=== PATIENT | female | born 1950 | race Caucasian/White ===

== ENCOUNTER 2019-02-28 08:57 | Inpatient (IN) | payer OTHER, MEDICAID ==
[2019-02-28] VITALS (34 sets, daily range): BP systolic 82–114; BP diastolic 47–61; PULSE 89–110; RESP 13–31; Ht 160 cm; Wt 69.4 kg
[~2019-02-28] VITALS: Ht 160 cm; Wt 69.4 kg
[~2019-02-28 08:57] MED LIST: ACET-2343 GTB; ALBU2.5V3 NEB; AMIN30LI GTB; ASCO500C7 GTB; BISA10SU55 RC; CHLO473M4 MM; DEXA4TAB GTB; DOCU-144 GTB; DULO30CA48 GTB; FAMO20TA18 GTB; GABA300C16 GTB; HYDR2TAB36 GTB; INSU500I SQ; LORA-441 GTB; MAGN400O19 GTB; MULTI GTB; NA P133E39 RC; NITR0.4T32 SL; UDFER GTB; ZINC220C5 GTB
[2019-02-28] MEDS ORDERED: ACETAMINOPHEN 650MG/20.3ML CUP NGT STA (09:03)
[2019-02-28] MEDS ORDERED: CEFEPIME 2GM/50 ML (PMX) 50 ML IVPB STA (09:03)
[2019-02-28] MEDS ORDERED: SODIUM CHLORIDE 0.9% 1L BAG IV* STA (09:03)
[2019-02-28] MEDS ORDERED: VANCOMYCIN 1 GM (PMX) 250 ML IVPB ONE (09:30)
[2019-02-28] MEDS ORDERED: NA BICARBONATE 8.4% 50 ML SYG IV STA (09:39)
[2019-02-28] MEDS ORDERED: INSULIN REGULAR, HUMAN 100 UNIT/1 ML 3ML VIAL IVP STA (09:39)
[2019-02-28] MEDS ORDERED: CALCIUM GLUCONATE 10% 1 GM in DEXTROSE 5% 100 ML IVPB ONE (10:00)
[2019-02-28] MEDS ORDERED: DEXTROSE 50% 50 ML SYRINGE IV PRN ×5 (10:00→16:30)
[2019-02-28] MEDS ORDERED: ONDANSETRON 4 MG INJ IV PRN (11:00)
[2019-02-28] MEDS: PANTOPRAZOLE 40 MG INJ IV SCH ×2 (11:00→14:24)
[2019-02-28] MEDS: ACCU-CHEK XX SCH ×5 (11:00→15:00)
[2019-02-28] MEDS ORDERED: NORepinephrine 8MG/250 ML (PMX 250 ML ONE (11:46)
[2019-02-28] MEDS ORDERED: NORepinephrine 8MG/250 ML (PMX 250 ML IV STA (11:46)
[2019-02-28] MEDS ORDERED: SOD CHLORIDE 0.9% 1,000 ML IV STA (11:46)
[2019-02-28] MEDS ORDERED: INSULIN HUMAN REGULAR 100 UNIT in SOD CHLORIDE 0.9% 99 ML IV SCH (12:00)
[2019-02-28] MEDS: SOD CHLORIDE 0.9% 1,000 ML IV SCH ×2 (13:54→23:29)
[2019-02-28] MEDS: POLYETHYLENE GLYCOL 17 GM PACKET PEG SCH (14:26)
[2019-02-28] MEDS ORDERED: VANCOMYCIN IV PER PHARMACY XX SCH (16:00)
[2019-02-28] MEDS ORDERED: GLUCAGON 1 MG INJ IM PRN (16:30)
[2019-02-28] MEDS ORDERED: GLUCOSE GEL 15 GRAM TUBE PO PRN ×2 (16:30)
[2019-02-28] MEDS ORDERED: GLUCOSE GEL 15 GRAM TUBE BUCCAL PRN (16:30)
[2019-02-28] MEDS: MEROPENEM 1 GM/50ML(PMX) 50 ML IVPB SCH ×2 (16:32→22:31)
[2019-02-28] MEDS: FLUCONAZOLE 400 MG/NS (PMX) 200 ML IVPB SCH (17:32)
[2019-02-28] MEDS: INSULIN ASPART [NOVOLOG] 3 ML PEN SC SCH ×2 (17:35→20:40)
[2019-02-28] MEDS: DOCUSATE SODIUM 10 MG/ML (10ML CUP) GTB SCH (20:25)
[2019-02-28] MEDS: FERROUS SULFATE 60 MG/ML 5ML CUP GTB SCH (20:25)
[2019-02-28] MEDS: CHLORHEXIDINE GLUCONATE 15 ML UD CUP MM SCH (20:25)
[2019-02-28] MEDS ORDERED: NA PHOSPHATE/BIPHOS 133 ML ENEMA PR PRN (20:30)
[2019-02-28] MEDS: VANCOMYCIN 750 MG (PMX) 250 ML IVPB SCH (20:38)
[2019-02-28] MEDS ORDERED: HEPARIN 5,000 UNIT/1 ML VIAL SC SCH (21:00)
[2019-02-28] MEDS ORDERED: NA PHOSPHATE/BIPHOS 133 ML ENEMA PR ONE (21:00)
[2019-03-01] VITALS (63 sets, daily range): BP systolic 84–124; BP diastolic 33–66; PULSE 85–100; RESP 12–25
[2019-03-01] MEDS: INSULIN ASPART [NOVOLOG] 3 ML PEN SC SCH ×6 (00:33→21:00)
[2019-03-01] MEDS: ACCU-CHEK XX SCH (02:00)
[2019-03-01] MEDS: SOD CHLORIDE 0.9% 1,000 ML IV SCH (03:30)
[2019-03-01] MEDS: MEROPENEM 1 GM/50ML(PMX) 50 ML IVPB SCH ×3 (05:39→22:02)
[2019-03-01] MEDS: LANSOPRAZOLE (SOLTAB) 30 MG TAB GTB SCH (05:39)
[2019-03-01] MEDS ORDERED: PANTOPRAZOLE (EC) 40 MG TAB PO SCH (06:00)
[2019-03-01] MEDS: MULTIVITAMINS THERAPEUTIC TAB GTB SCH (08:24)
[2019-03-01] MEDS: ASCORBIC ACID 500 MG TAB GTB SCH (08:24)
[2019-03-01] MEDS: FERROUS SULFATE 60 MG/ML 5ML CUP GTB SCH ×2 (08:24→21:00)
[2019-03-01] MEDS: CHLORHEXIDINE GLUCONATE 15 ML UD CUP MM SCH ×2 (08:24→21:00)
[2019-03-01] MEDS: VANCOMYCIN 750 MG (PMX) 250 ML IVPB SCH ×2 (08:25→22:02)
[2019-03-01] MEDS: POLYETHYLENE GLYCOL 17 GM PACKET PEG SCH (08:25)
[2019-03-01] MEDS: ZINC SULFATE 220 MG CAP GTB SCH (08:25)
[2019-03-01] MEDS: DOCUSATE SODIUM 10 MG/ML (10ML CUP) GTB SCH ×2 (08:27→21:00)
[2019-03-01] MEDS ORDERED: NON-FORMULARY/PATIENT OWN MED (Amino Acids/Protein Hydrolys (Pro-Stat Liquid) 30 ML) GTB SCH (09:00)
[2019-03-01] MEDS: DEXTROSE 5%-0.45% NACL 1,000 ML IV SCH ×2 (10:24→22:09)
[2019-03-01] MEDS ORDERED: MAGNESIUM CITRATE 300 ML BTL GTB ONE (10:30)
[2019-03-01] MEDS ORDERED: GENTAMICIN IV PER PHARMACY XX SCH (13:00)
[2019-03-01] MEDS ORDERED: IOHEXOL 300MG/ML 150 ML BTL ONE (14:42)
[2019-03-01] MEDS ORDERED: MINERAL OIL 133 ML ENEMA PR ONE (15:30)
[2019-03-01] MEDS ORDERED: GENTAMICIN IVPB SCH (16:00)
[2019-03-01] MEDS ORDERED: DEXTROSE 5% IVPB SCH (16:00)
[2019-03-01] MEDS: FLUCONAZOLE 400 MG/NS (PMX) 200 ML IVPB SCH (16:43)
[2019-03-02] VITALS (73 sets, daily range): BP systolic 79–158; BP diastolic 37–68; PULSE 77–106; RESP 12–32
[2019-03-02] MEDS: INSULIN ASPART [NOVOLOG] 3 ML PEN SC SCH ×6 (01:00→21:00)
[2019-03-02] MEDS: DEXTROSE 5%-0.45% NACL 1,000 ML IV SCH (01:00)
[2019-03-02] MEDS: ACCU-CHEK XX SCH (02:00)
[2019-03-02] MEDS: MEROPENEM 1 GM/50ML(PMX) 50 ML IVPB SCH ×3 (05:19→21:49)
[2019-03-02] MEDS: LANSOPRAZOLE (SOLTAB) 30 MG TAB GTB SCH (05:19)
[2019-03-02] MEDS ORDERED: POTASSIUM CHLORIDE (SR) 20 MEQ TAB PO ONE (05:54)
[2019-03-02] MEDS ORDERED: POTASSIUM CHLORIDE 50 ML ONE (05:57)
[2019-03-02] MEDS: POTASSIUM CHLORIDE 50 ML IVPB SCH ×2 (06:24→08:26)
[2019-03-02] MEDS ORDERED: SOD CHLORIDE 0.9% 250 ML IV* ONE (06:57)
[2019-03-02] MEDS: CHLORHEXIDINE GLUCONATE 15 ML UD CUP MM SCH ×2 (08:19→20:48)
[2019-03-02] MEDS: ASCORBIC ACID 500 MG TAB GTB SCH (08:20)
[2019-03-02] MEDS: FERROUS SULFATE 60 MG/ML 5ML CUP GTB SCH ×2 (08:20→20:48)
[2019-03-02] MEDS: MULTIVITAMINS THERAPEUTIC TAB GTB SCH (08:20)
[2019-03-02] MEDS: DOCUSATE SODIUM 10 MG/ML (10ML CUP) GTB SCH ×2 (08:20→20:38)
[2019-03-02] MEDS: POLYETHYLENE GLYCOL 17 GM PACKET PEG SCH (08:20)
[2019-03-02] MEDS: ZINC SULFATE 220 MG CAP GTB SCH (08:20)
[2019-03-02] MEDS: VANCOMYCIN 750 MG (PMX) 250 ML IVPB SCH (08:26)
[2019-03-02] MEDS: SOD CHLORIDE 0.9% 1,000 ML IV SCH (09:52)
[2019-03-02] MEDS ORDERED: MAGNESIUM SULFATE 2 GM/50 ML 50 ML IVPB ONE (13:30)
[2019-03-02] MEDS ORDERED: NORepinephrine 8MG/250 ML (PMX 250 ML IV SCH (16:00)
[2019-03-02] MEDS ORDERED: AMIKACIN IV PER PHARMACY XX SCH (16:00)
[2019-03-02] MEDS ORDERED: SOD CHLORIDE 0.9% IVPB SCH (18:00)
[2019-03-02] MEDS ORDERED: AMIKACIN IVPB SCH (18:00)
[2019-03-02] MEDS: ACETAMINOPHEN 325 MG TAB GTB PRN (20:49)
[2019-03-03] VITALS (50 sets, daily range): BP systolic 89–145; BP diastolic 43–63; PULSE 71–100; RESP 12–25
[2019-03-03] MEDS: INSULIN ASPART [NOVOLOG] 3 ML PEN SC SCH ×6 (01:00→20:22)
[2019-03-03] MEDS: ACCU-CHEK XX SCH (01:50)
[2019-03-03] MEDS ORDERED: LORAZEPAM 1 MG TAB ONE (03:01)
[2019-03-03] MEDS: LORAZEPAM 0.5 MG TAB GTB PRN (03:06)
[2019-03-03] MEDS: SOD CHLORIDE 0.9% 1,000 ML IV SCH (05:21)
[2019-03-03] MEDS: ACETAMINOPHEN 325 MG TAB GTB PRN (05:22)
[2019-03-03] MEDS: LANSOPRAZOLE (SOLTAB) 30 MG TAB GTB SCH (05:27)
[2019-03-03] MEDS: MEROPENEM 1 GM/50ML(PMX) 50 ML IVPB SCH ×3 (05:27→21:41)
[2019-03-03] MEDS ORDERED: MAGNESIUM SULFATE 2 GM/50 ML 50 ML IVPB ONE (07:00)
[2019-03-03] MEDS: POLYETHYLENE GLYCOL 17 GM PACKET PEG SCH (08:35)
[2019-03-03] MEDS: DOCUSATE SODIUM 10 MG/ML (10ML CUP) GTB SCH ×2 (09:00→21:00)
[2019-03-03] MEDS: NEUTRA-PHOS 250 MG PACKET GTB SCH ×2 (09:06→21:42)
[2019-03-03] MEDS: MULTIVITAMINS THERAPEUTIC TAB GTB SCH (09:06)
[2019-03-03] MEDS: CHLORHEXIDINE GLUCONATE 15 ML UD CUP MM SCH ×2 (09:06→21:42)
[2019-03-03] MEDS: ZINC SULFATE 220 MG CAP GTB SCH (09:06)
[2019-03-03] MEDS: ASCORBIC ACID 500 MG TAB GTB SCH (09:06)
[2019-03-03] MEDS: FERROUS SULFATE 60 MG/ML 5ML CUP GTB SCH ×2 (09:06→21:42)
[2019-03-03] MEDS: POTASSIUM CHLORIDE 100 ML IVPB SCH ×3 (11:33→15:30)
[2019-03-04] VITALS (17 sets, daily range): BP systolic 113–133; BP diastolic 55–63; PULSE 87–97; RESP 10–22
[2019-03-04] MEDS: INSULIN ASPART [NOVOLOG] 3 ML PEN SC SCH ×5 (00:55→21:00)
[2019-03-04] MEDS: ACCU-CHEK XX SCH (02:00)
[2019-03-04] MEDS: LORAZEPAM 0.5 MG TAB GTB PRN (02:28)
[2019-03-04] MEDS: MEROPENEM 1 GM/50ML(PMX) 50 ML IVPB SCH ×3 (06:49→21:02)
[2019-03-04] MEDS: LANSOPRAZOLE (SOLTAB) 30 MG TAB GTB SCH (06:49)
[2019-03-04] MEDS: NEUTRA-PHOS 250 MG PACKET GTB SCH ×2 (09:54→20:45)
[2019-03-04] MEDS: MULTIVITAMINS THERAPEUTIC TAB GTB SCH (09:54)
[2019-03-04] MEDS: POLYETHYLENE GLYCOL 17 GM PACKET PEG SCH (09:54)
[2019-03-04] MEDS: DOCUSATE SODIUM 10 MG/ML (10ML CUP) GTB SCH ×2 (09:55→20:43)
[2019-03-04] MEDS: CHLORHEXIDINE GLUCONATE 15 ML UD CUP MM SCH ×2 (09:55→20:52)
[2019-03-04] MEDS: FERROUS SULFATE 60 MG/ML 5ML CUP GTB SCH ×2 (09:55→20:45)
[2019-03-04] MEDS: ASCORBIC ACID 500 MG TAB GTB SCH (09:56)
[2019-03-04] MEDS: ZINC SULFATE 220 MG CAP GTB SCH (09:56)
[2019-03-04] MEDS ORDERED: POTASSIUM PHOSPHATE 20 MEQ in SOD CHLORIDE 0.9% 250 ML IVPB ONE (10:00)
[2019-03-04] MEDS ORDERED: SULFAMETHOXAZOLE IVPB SCH (16:00)
[2019-03-04] MEDS ORDERED: DEXTROSE IVPB SCH (16:00)
[2019-03-04] MEDS ORDERED: TRIMETHOPRIM IVPB SCH (16:00)
[2019-03-04] MEDS: DEXTROSE IVPB SCH (22:50)
[2019-03-04] MEDS: SULFAMETHOXAZOLE IVPB SCH (22:50)
[2019-03-04] MEDS: TRIMETHOPRIM IVPB SCH (22:50)
[2019-03-05] VITALS (18 sets, daily range): BP systolic 97–121; BP diastolic 51–58; PULSE 80–95; RESP 14–21
[2019-03-05] MEDS: INSULIN ASPART [NOVOLOG] 3 ML PEN SC SCH ×6 (01:30→21:00)
[2019-03-05] MEDS: ACCU-CHEK XX SCH (02:08)
[2019-03-05] MEDS: LORAZEPAM 0.5 MG TAB GTB PRN (03:08)
[2019-03-05] MEDS: MEROPENEM 1 GM/50ML(PMX) 50 ML IVPB SCH ×3 (05:16→22:05)
[2019-03-05] MEDS: LANSOPRAZOLE (SOLTAB) 30 MG TAB GTB SCH (05:16)
[2019-03-05] MEDS: DEXTROSE IVPB SCH (06:33)
[2019-03-05] MEDS: SULFAMETHOXAZOLE IVPB SCH (06:33)
[2019-03-05] MEDS: TRIMETHOPRIM IVPB SCH (06:33)
[2019-03-05] MEDS: MULTIVITAMINS THERAPEUTIC TAB GTB SCH (10:13)
[2019-03-05] MEDS: NEUTRA-PHOS 250 MG PACKET GTB SCH ×2 (10:13→21:00)
[2019-03-05] MEDS: ASCORBIC ACID 500 MG TAB GTB SCH (10:13)
[2019-03-05] MEDS: DOCUSATE SODIUM 10 MG/ML (10ML CUP) GTB SCH ×2 (10:14→21:00)
[2019-03-05] MEDS: POLYETHYLENE GLYCOL 17 GM PACKET PEG SCH (10:14)
[2019-03-05] MEDS: FERROUS SULFATE 60 MG/ML 5ML CUP GTB SCH ×2 (10:15→21:00)
[2019-03-05] MEDS: CHLORHEXIDINE GLUCONATE 15 ML UD CUP MM SCH ×2 (10:15→21:00)
[2019-03-05] MEDS: ZINC SULFATE 220 MG CAP GTB SCH (10:15)
[2019-03-05] MEDS ORDERED: POTASSIUM CHLORIDE (1.33 MEQ/ML PO SYG) GTB ONE (10:30)
[2019-03-05] MEDS ORDERED: POTASSIUM CHLORIDE 20 MEQ POWDER FOR ORAL SOLN GTB SCH (10:30)
[2019-03-05] MEDS: COLISTIMETHATE 150 MG in SOD CHLORIDE 0.9% 100 ML IVPB SCH ×2 (15:00→23:46)
[2019-03-06] VITALS (18 sets, daily range): BP systolic 97–111; BP diastolic 51–65; PULSE 89–100; RESP 14–23
[2019-03-06] MEDS: INSULIN ASPART [NOVOLOG] 3 ML PEN SC SCH ×6 (01:00→21:00)
[2019-03-06] MEDS: ACCU-CHEK XX SCH (02:00)
[2019-03-06] MEDS: MEROPENEM 1 GM/50ML(PMX) 50 ML IVPB SCH ×3 (05:31→21:38)
[2019-03-06] MEDS: LANSOPRAZOLE (SOLTAB) 30 MG TAB GTB SCH (05:31)
[2019-03-06] MEDS: ASCORBIC ACID 500 MG TAB GTB SCH (08:48)
[2019-03-06] MEDS: CHLORHEXIDINE GLUCONATE 15 ML UD CUP MM SCH ×2 (08:48→21:38)
[2019-03-06] MEDS: ZINC SULFATE 220 MG CAP GTB SCH (08:48)
[2019-03-06] MEDS: FERROUS SULFATE 60 MG/ML 5ML CUP GTB SCH ×2 (08:48→21:37)
[2019-03-06] MEDS: DOCUSATE SODIUM 10 MG/ML (10ML CUP) GTB SCH ×2 (08:48→21:37)
[2019-03-06] MEDS: POLYETHYLENE GLYCOL 17 GM PACKET PEG SCH (08:49)
[2019-03-06] MEDS: MULTIVITAMINS THERAPEUTIC TAB GTB SCH (08:49)
[2019-03-06] MEDS: NEUTRA-PHOS 250 MG PACKET GTB SCH ×2 (08:49→21:38)
[2019-03-06] MEDS: COLISTIMETHATE 150 MG in SOD CHLORIDE 0.9% 100 ML IVPB SCH (08:51)
[2019-03-06] MEDS: ACETAMINOPHEN 325 MG TAB GTB PRN ×2 (15:17→21:54)
[2019-03-06] MEDS ORDERED: COLISTIMETHATE 75 MG in SOD CHLORIDE 0.9% 100 ML IVPB SCH (21:00)
[2019-03-07] VITALS (17 sets, daily range): BP systolic 99–137; BP diastolic 49–63; PULSE 83–94; RESP 13–24
[2019-03-07] MEDS: INSULIN ASPART [NOVOLOG] 3 ML PEN SC SCH ×6 (01:00→21:00)
[2019-03-07] MEDS: ACCU-CHEK XX SCH (02:00)
[2019-03-07] MEDS: MEROPENEM 1 GM/50ML(PMX) 50 ML IVPB SCH ×3 (05:36→21:51)
[2019-03-07] MEDS: LANSOPRAZOLE (SOLTAB) 30 MG TAB GTB SCH (05:36)
[2019-03-07] MEDS ORDERED: MAGNESIUM SULFATE 2 GM/50 ML 50 ML IVPB ONE (07:30)
[2019-03-07] MEDS: CHLORHEXIDINE GLUCONATE 15 ML UD CUP MM SCH ×2 (08:56→21:05)
[2019-03-07] MEDS: ZINC SULFATE 220 MG CAP GTB SCH (08:59)
[2019-03-07] MEDS: NEUTRA-PHOS 250 MG PACKET GTB SCH ×2 (08:59→21:05)
[2019-03-07] MEDS: ASCORBIC ACID 500 MG TAB GTB SCH (08:59)
[2019-03-07] MEDS: MULTIVITAMINS THERAPEUTIC TAB GTB SCH (08:59)
[2019-03-07] MEDS: FERROUS SULFATE 60 MG/ML 5ML CUP GTB SCH ×2 (08:59→21:04)
[2019-03-07] MEDS: POLYETHYLENE GLYCOL 17 GM PACKET PEG SCH ×2 (09:00→14:01)
[2019-03-07] MEDS: DOCUSATE SODIUM 10 MG/ML (10ML CUP) GTB SCH ×2 (09:00→14:01)
[2019-03-07] MEDS: COLISTIMETHATE 75 MG in SOD CHLORIDE 0.9% 100 ML IVPB SCH ×2 (09:03→21:05)
[2019-03-07] MEDS: ACETAMINOPHEN 325 MG TAB GTB PRN (09:04)
[2019-03-08] VITALS (18 sets, daily range): BP systolic 107–128; BP diastolic 52–60; PULSE 87–95; RESP 12–24
[2019-03-08] MEDS: INSULIN ASPART [NOVOLOG] 3 ML PEN SC SCH ×3 (06:00→17:43)
[2019-03-08] MEDS: LANSOPRAZOLE (SOLTAB) 30 MG TAB GTB SCH (06:19)
[2019-03-08] MEDS: MEROPENEM 1 GM/50ML(PMX) 50 ML IVPB SCH ×3 (06:20→22:11)
[2019-03-08] MEDS: CHLORHEXIDINE GLUCONATE 15 ML UD CUP MM SCH ×2 (08:46→21:23)
[2019-03-08] MEDS: NEUTRA-PHOS 250 MG PACKET GTB SCH ×2 (08:46→21:22)
[2019-03-08] MEDS: MULTIVITAMINS THERAPEUTIC TAB GTB SCH (08:46)
[2019-03-08] MEDS: ASCORBIC ACID 500 MG TAB GTB SCH (08:46)
[2019-03-08] MEDS: ZINC SULFATE 220 MG CAP GTB SCH (08:46)
[2019-03-08] MEDS: FERROUS SULFATE 60 MG/ML 5ML CUP GTB SCH ×2 (08:46→21:22)
[2019-03-08] MEDS: POLYETHYLENE GLYCOL 17 GM PACKET PEG SCH (08:47)
[2019-03-08] MEDS: DOCUSATE SODIUM 10 MG/ML (10ML CUP) GTB SCH ×2 (08:47→21:00)
[2019-03-08] MEDS: COLISTIMETHATE 75 MG in SOD CHLORIDE 0.9% 100 ML IVPB SCH ×2 (09:02→21:23)
[2019-03-08] MEDS: LORAZEPAM 0.5 MG TAB GTB PRN (09:14)
[2019-03-09] VITALS (17 sets, daily range): BP systolic 113–128; BP diastolic 55–64; PULSE 87–99; RESP 12–20
[2019-03-09] MEDS: INSULIN ASPART [NOVOLOG] 3 ML PEN SC SCH ×4 (06:00→16:54)
[2019-03-09] MEDS: LANSOPRAZOLE (SOLTAB) 30 MG TAB GTB SCH (06:43)
[2019-03-09] MEDS: MEROPENEM 1 GM/50ML(PMX) 50 ML IVPB SCH ×3 (06:44→20:12)
[2019-03-09] MEDS: POLYETHYLENE GLYCOL 17 GM PACKET PEG SCH (08:48)
[2019-03-09] MEDS: ASCORBIC ACID 500 MG TAB GTB SCH (08:48)
[2019-03-09] MEDS: NEUTRA-PHOS 250 MG PACKET GTB SCH ×2 (08:48→20:12)
[2019-03-09] MEDS: CHLORHEXIDINE GLUCONATE 15 ML UD CUP MM SCH ×2 (08:48→20:12)
[2019-03-09] MEDS: ZINC SULFATE 220 MG CAP GTB SCH (08:48)
[2019-03-09] MEDS: FERROUS SULFATE 60 MG/ML 5ML CUP GTB SCH ×2 (08:48→20:12)
[2019-03-09] MEDS: MULTIVITAMINS THERAPEUTIC TAB GTB SCH (08:48)
[2019-03-09] MEDS: DOCUSATE SODIUM 10 MG/ML (10ML CUP) GTB SCH ×2 (08:49→20:12)
[2019-03-09] MEDS: COLISTIMETHATE 75 MG in SOD CHLORIDE 0.9% 100 ML IVPB SCH ×2 (09:53→20:12)
== END 2019-03-09 23:12 | DRG 870 ==
LOC: E/R 08:57 → ICU 10:36 → SUATTDRO 10:55 → 6WM 03-03 19:29
PROVIDERS: ADMIT Internal Medicine; ATTEND Family Medicine
PROC: 5A1955Z Respiratory Ventilation, Greater than 96 Consecutive Hours (ICD-10-PCS; principal; 2019-02-28)
PROC: 4A033R1 Measurement of Arterial Saturation, Peripheral, Percutaneous Approach (ICD-10-PCS; 2019-02-28)
PROC: 30233N1 Transfusion of Nonautologous Red Blood Cells into Peripheral Vein, Percutaneous Approach (ICD-10-PCS; 2019-03-02)
DX: A41.59 Other Gram-negative sepsis (principal); R65.21 Severe sepsis with septic shock; G92 Toxic encephalopathy; J18.9 Pneumonia, unspecified organism; I21.A1 Myocardial infarction type 2; J96.21 Acute and chronic respiratory failure with hypoxia; N17.9 Acute kidney failure, unspecified; C41.2 Malignant neoplasm of vertebral column; C78.00 Secondary malignant neoplasm of unspecified lung; C79.51 Secondary malignant neoplasm of bone; D61.818 Other pancytopenia; N13.6 Pyonephrosis; Z99.11 Dependence on respirator [ventilator] status; Z66 Do not resuscitate; E87.5 Hyperkalemia; E11.9 Type 2 diabetes mellitus without complications; R31.0 Gross hematuria; E83.52 Hypercalcemia; Z98.1 Arthrodesis status; K59.00 Constipation, unspecified; Z93.0 Tracheostomy status; Z93.1 Gastrostomy status; R13.10 Dysphagia, unspecified; S42.302D Unspecified fracture of shaft of humerus, left arm, subsequent encounter for fracture with routine healing; E83.42 Hypomagnesemia; Z86.73 Personal history of transient ischemic attack (TIA), and cerebral infarction without residual deficits; D64.9 Anemia, unspecified; F03.90 Unspecified dementia, unspecified severity, without behavioral disturbance, psychotic disturbance, mood disturbance, and anxiety; R19.7 Diarrhea, unspecified
CPT/HCPCS: 36415; 36430; 36600; 70450; 71045; 74018; 74176; 74250; 80048; 80053; 80150; 80170; 80202; 80307; 81001; 82533; 82550; 82553; 82668; 82728; 82803; 82962; 83036; 83540; 83605; 83735; 84100; 84145; 84484; 85014; 85018; 85025; 85049; 85378; 85384; 85610; 85670; 85730; 86703; 86850; 86900; 86901; 86920; 87070; 87075; 87081; 87086; 89220; 93005; 93306; 94002; 94003; 95819; 96374; 96375; C9113; J0278; J0610; J0692; J1450; J1580; J1815; J2185; J3370; J3475; J3480; J7030; J7040; J7042; J7050; J7060; P9016; Q9967